=== PATIENT | female | born 2000 | race Caucasian/White ===

== ENCOUNTER 2021-05-08 00:15 | Emergency (ER) | payer SELFPAY ==
[~2021-05-08] VITALS: Ht 167.6 cm; Wt 66.0 kg
[2021-05-08] MEDS ORDERED: NAPR-681 PO (01:59)
[2021-05-08 02:00] VITALS: BP 121/69
== END 2021-05-08 02:28 | disposition home or self-care (01) ==
LOC: ER 00:15
DX: S00.83XA Contusion of other part of head, initial encounter (principal); S90.31XA Contusion of right foot, initial encounter; M79.671 Pain in right foot; V43.42XA Person boarding or alighting a car injured in collision with other type car, initial encounter; Y93.89 Activity, other specified; Y92.89 Other specified places as the place of occurrence of the external cause
CPT/HCPCS: 73630; 81025; 99283